=== PATIENT | female | born 2000 | race Caucasian/White ===

== ENCOUNTER 2021-04-22 07:47 | Emergency (ER) | payer MEDICAID, SELFPAY ==
[2021-04-22 07:49] VITALS: BP 132/93; PULSE 100; RESP 16; TEMP 36.7; O2SAT 98; BMI 40.7
--- NOTE | 2021-04-22 08:08 | CT_ITS ---
STUDY: CT ABDOMEN AND PELVIS WITHOUT CONTRAST REASON FOR EXAM: Female, 20 years old. Kidney Stone RADIATION DOSAGE (If Supplied By Facility): CTDIvol = ( 11.49 ) mGy, DLP = ( 634.35 ) mGycm TECHNIQUE: Transaxial images were obtained from the dome of the diaphragm to the symphysis pubis without oral contrast, and without intravenous contrast. Sagittal and coronal images were reconstructed. Individualized dose optimization techniques were used for this CT. COMPARISON: None. FINDINGS: The visualized lung bases are unremarkable. The visualized portions of the heart are within normal limits. Normal liver. Normal gallbladder and extrahepatic biliary system. Normal spleen. Normal pancreas. Normal bilateral adrenal glands. Normal right kidney. Tiny (1 to 2 mm) obstructing stone of the distal right ureter just proximal to the ureterovesical junction with mild ureteral dilatation and hydronephrosis. Normal visualized stomach. Normal small intestine. Normal colon. The appendix is visualized and appears normal. Normal abdominal aorta. Normal inferior vena cava. Normal retroperitoneum. Normal urinary bladder. Normal abdominal wall. Normal osseous structures. CT/Abdomen/Pelvis without Cont IMPRESSION: Tiny (1 to 2 mm) obstructing stone of the distal right ureter with mild ureteral dilatation and hydronephrosis. Electronically Signed: Nhan Damon MD at 9:26 EST ,
[2021-04-22] MEDS: Ondansetron 4 MG/2 ML Vial IV (08:16)
[2021-04-22] MEDS: Ketorolac 15 MG/ML Vial IV (08:17)
--- NOTE | 2021-04-22 08:18 | EDS_ITS ---
HPI HPI - Female History of Present Illness Chief Complaint: Abd Pain Narrative Narrative: 20-year-old female presenting with right flank pain. She states she has had it intermittently for a couple of days. She states it is sharp and intermittent. She has associated symptoms of nausea. Patient has a history of appendectomy previously. She states that she has family history of kidney stones and believes this is what it would feel like. She denies any urinary complaints. She is not concerned for because she has a Nexplanon. She has no vaginal complaints other than she has spotting on her period currently. PFSH PFSH Medical History (Updated 04/22/21 @ 10:[address] Abraham Rodriguez, ) Anxiety Depression TBI (traumatic brain injury) Home Medications hydrocodone-acetaminophen 1 tab PO Q6H PRN 3 Days #12 tab 04/22/21 [Rx Last Taken Unknown] ondansetron 4 mg PO Q8H PRN #14 tab 04/22/21 [Rx Last Taken Unknown] Allergy/AdvReac Type Severity Reaction Status Date / Time latex Allergy Rash Verified 04/22/21 07:50 Surgical History (Updated 04/22/21 @ 08:35 by Tosha Gann) Hx of appendectomy Social History Smoking Status: Current some day smoker tobacco type: e-cigarettes ROS ROS ED Constitutional Constitutional ED: Denies chills or subjective Eyes Eyes: Denies blurry vision or diplopia ENT ENT ED: Denies rhinorrhea or sore throat Cardiovascular Cardiovascular: Denies chest pain or palpitations Respiratory/Chest Respiratory/Chest: Denies cough, dyspnea or stridor Gastrointestinal Gastrointestinal: Reports abdominal pain and nausea; Denies constipation, diarrhea or vomiting Genitourinary Genitourinary ED: Denies dysuria or hematuria Musculoskeletal Musculoskeletal: Denies myalgias Integumentary Denies rash Neurologic Neurologic: Denies headache(s) or paresthesias Psychiatric Psychiatric: Denies anxiety or depression EXAM Physical Exam Const Vital Signs: 04/22/21 07:49 Temperature 98.0 F Temperature Source Temporal Pulse Rate 100 Respiratory Rate 16 Blood Pressure 132/93 H Blood Pressure Mean 106 Pulse Ox 98 Oxygen Delivery Method Room Air Positive well nourished General Appearance ED: NAD; Negative for pallor HEENT Reports moist mucous membranes Negative for trauma Eyes PERRL and EOMs intact bilaterally Chest Wall inspection of chest normal and palpation of chest normal Resp normal respiratory effort and clear to auscultation bilaterally Cardio regular rate and regular rhythm Back/Spine General Back: CVA tenderness right Lumbar Spine / Lower Back: Negative for lumbar spinal tenderness Neuro oriented x3 Sensorium / Orientation: alert Psych mental status grossly normal Skin General Skin Exam: Negative for jaundice or pallor MDM MDM MDM Narrative Medical decision making narrative: Patient presenting with CVA tenderness and nausea. She has family history of kidney stones. Patient medicated with Toradol and Zofran initially. Patient's urinalysis shows hematuria and some contamination however the patient is on her menstrual cycle currently. She is not having urinary symptoms and I do not believe she needs antibiotics. CBC and BMP are unremarkable. Serum test is negative. CT of the abdomen pelvis without contrast shows a 1 to 2 mm distal ureteral stone with very mild hydronephrosis and hydroureter. Patient currently comfortable. She will be given [place] and Zofran for home. She is given follow-up with urology. She is given return precautions. Impression: 1. Right ureteral stone 2. Hematuria 3. Hydronephrosis Lab Data Labs: Laboratory Results - last 24 hr 04/22/21 04/22/21 04/22/21 08:05 08:05 08:05 WBC 9.6 RBC 5.50 H Hgb 14.8 Hct 44.9 MCV 81.6 MCH 26.9 L MCHC 33.0 RDW Std Deviation 38.7 RDW Coeff of Rosalba 13.2 Plt Count 311 MPV 9.8 Immature Gran % (Auto) 0.500 Neut % (Auto) 56.4 Lymph % (Auto) 32.5 Granite % (Auto) 8.1 Eos % (Auto) 1.9 Baso % (Auto) 0.6 Absolute Neuts (auto) 5.4 Absolute Lymphs (auto) 3.11 Nucleated RBC % 0 Sodium 138 Potassium 3.8 Chloride 107 Carbon Dioxide 25.0 Anion Gap 6 BUN 13 Creatinine 0.80 Estim Creat Clear Calc 93.56 Est GFR (MDRD) Af Amer 119 Est GFR (MDRD) Non-Af 98 BUN/Creatinine Ratio 16.4 Glucose 98 Calcium 9.3 Serum , Qual NEGATIVE Urine Color Urine Clarity Urine pH Ur Specific Sylvester Urine Protein Urine Glucose (UA) Urine Ketones Urine Occult Blood Urine Nitrite Urine Bilirubin Urine Urobilinogen Ur Leukocyte Esterase Urine RBC Urine WBC Ur Squamous Epith Cells Urine Bacteria Urine Mucus 04/22/21 09:23 WBC RBC Hgb Hct MCV MCH MCHC RDW Std Deviation RDW Coeff of Rosalba Plt Count MPV Immature Gran % (Auto) Neut % (Auto) Lymph % (Auto) Granite % (Auto) Eos % (Auto) Baso % (Auto) Absolute Neuts (auto) Absolute Lymphs (auto) Nucleated RBC % Sodium Potassium Chloride Carbon Dioxide Anion Gap BUN Creatinine Estim Creat Clear Calc Est GFR (MDRD) Af Amer Est GFR (MDRD) Non-Af BUN/Creatinine Ratio Glucose Calcium Serum , Qual Urine Color Yellow Urine Clarity Sl. Cloudy Urine pH 5.0 Ur Specific Sylvester 1.025 Urine Protein 30 H Urine Glucose (UA) Normal Urine Ketones 5 H Urine Occult Blood 150 H Urine Nitrite Negative Urine Bilirubin 1 H Urine Urobilinogen 1 H Ur Leukocyte Esterase 25 H Urine RBC 10-25 SEEN Urine WBC 0-5 SEEN Ur Squamous Epith Cells 0-5 SEEN Urine Bacteria 2+ Urine Mucus 1+ Radiography Diagnostic Testing: Clinical Impression(s) from Imaging Studies Abdomen/Pelvis CT 04/22/21 08:08 IMPRESSION: Tiny (1 to 2 mm) obstructing stone of the distal right ureter with mild ureteral dilatation and hydronephrosis. Electronically Signed: Nhan Damon MD at 9:26 EST Reading Location ID and State: 4 [facility] Tel , Service support , Discharge Plan Triage Chief Complaint: Abd Pain ED Provider: Abraham Rodriguez Dx/Rx/DC Orders Instructions: ED Kidney Stone w/ Colic Prescriptions: New ondansetron 4 mg tablet,disintegrating 4 mg PO Q8H PRN (Reason: nausea and vomiting) Qty: 14 RF: 0 hydrocodone-acetaminophen 5-325 mg tablet 1 tab PO Q6H PRN (Reason: pain) 3 Days Qty: 12 RF: 0 Primary Care Provider: Mackenzie Al Referrals: Martha Aguilar MD [STAFF PHYSICIAN] - As soon as possible Mackenzie Al MD [Primary Care Provider] - Disposition Disposition: Home, Self Care
[2021-04-22 08:19] LABS: Absolute Lymphocyte Count 3.11 X10^3/uL (0.83-4.51); Absolute Neutrophil Count 5.4 X10^3/uL (2.0-7.7); Basophil# 0.06 X10^3/uL; Basophil% 0.6 % (0-1); Eosinophil# 0.18 X10^3/uL; Eosinophils% 1.9 % (0-5); Hematocrit 44.9 % (37-47); Hemoglobin 14.8 g/dL (12.0-15.0); Lymphocyte # 3.11 X10^3/ul (0.83-4.51); Lymphocyte % 32.5 % (19-41); Mean Corpuscular Hgb 26.9 pg (27.0-32.0); Mean Corpuscular Volume 81.6 fL (81-99); Mean Platelet Vol. 9.8 fl (6.2-12.0); Monocyte# 0.77 X10^3/uL; Monocyte% 8.1 % (0-10); NRBC Flagged by Analyzer 0 % (0-5); Neutrophil # 5.39 X10^3/uL (2.7-7.7); Neutrophil % 56.4 % (47-70); Platelet Count 311 K/mm3 (150-450); RBC Distribution Width CV 13.2 % (11.6-14.6); RBC Distribution Width SD 38.7 fl (35.1-43.9); White Blood Count 9.6 K/mm3 (4.4-11.0)
[2021-04-22 08:33] LABS: Internal QC Validated? YES +Cl - CLEAR BKGD; Pregnancy, Serum, hCG Quali. NEGATIVE Negative
[2021-04-22 08:37] LABS: Anion Gap 6 (5-15); BUN 13 mg/dL (7-18); BUN/Creat Ratio 16.4 RATIO (10-20); Calcium,Total 9.3 mg/dL (8.5-10.1); Chloride 107 mmol/L (98-107); EST Glomerular Filtration Rate 98 mL/min (>60); Est Glom Filt Rate - Afr Amer 119 mL/min (>60); Estimated Creatinine Clearance 93.56 ml/min; Glucose 98 mg/dL (74-106); Potassium 3.8 mmol/L (3.5-5.1); Sodium Level 138 mmol/L (136-145)
[2021-04-22 09:29] LABS: Color, Urine Yellow (Yellow); Glucose, Dipstick Normal (Normal); Ketone-Dipstick 5 mg/dl (Negative); Leukocyte Esterase-Dipstick 25 /ul (Negative); Nitrite-Dipstick Negative (Negative); Occult Blood-Urine 150 /ul (Negative); Protein-Dipstick 30 mg/dl (Negative); Specific Gravity, Urine 1.025 (1.002-1.030); Urine Clarity Sl. Cloudy (Clear); Urine Urobilinogen 1 mg/dl (Normal)
[2021-04-22 09:30] LABS: Urine Bilirubin Dipstick 1 mg/dL (Negative)
[2021-04-22 09:35] LABS: Bacteria 2+ /hpf (None Seen); Mucous, Urine 1+ /hpf (<or=2+); Squamous Epithelial Cells - UA 0-5 SEEN /hpf (5-10); White Blood Cells 0-5 SEEN /hpf (0-5)
[2021-04-22 09:36] LABS: Red Blood Cells-Urine 10-25 SEEN /hpf (0-5)
[2021-04-22] MEDS: HYDROcodone Bitartrate/Apap 5/325 Tablet PO (10:18)
[2021-04-22 10:26] VITALS: BP 124/75; PULSE 78; RESP 16; O2SAT 97
== END 2021-04-22 10:28 | disposition home or self-care (01) ==
PROVIDERS: Emergency Provider Student in an Organized Health Care Education/Training Program; Visit Provider Student in an Organized Health Care Education/Training Program
DX: N13.2 Hydronephrosis with renal and ureteral calculous obstruction (principal); R31.9 Hematuria, unspecified; F17.290 Nicotine dependence, other tobacco product, uncomplicated
CPT/HCPCS: 74176; 80048; 81001; 84703; 85025; 96374; 96375; 99285; J2405

== ENCOUNTER 2021-09-17 15:36 | Emergency (ER) | payer MEDICAID, SELFPAY ==
[2021-09-17 15:37] VITALS: BP 130/86; PULSE 91; RESP 16; TEMP 36.6; O2SAT 96; BMI 40.7
--- NOTE | 2021-09-17 15:56 | EX.ED.DYSGE1 ---
HPI History of Present Illness Chief Complaint: Other, Pain/Inj Narrative Narrative: Patient presents with right-sided jaw pain since this morning. She notes that she had a dental procedure performed and a filling in her right upper jaw yesterday. This morning when she awoke, she had increased pain with opening and closing her mouth when she clenches her teeth on the right side. She has sharp pain. 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 She called her primary care provider who was concerned about hypermobility of her right jaw. She denies any fevers or chills, no other symptoms. She presents because of the pain that she gets when she has movement of her mandible. [facility] Medical History Anxiety Depression TBI (traumatic brain injury) Home Medications hydrocodone-acetaminophen 5-325mg 5mg-325mg 1 tab PO Q6H PRN pain 3 days #12 tabs 04/22/21 [Rx Last Taken Unknown] ondansetron 4 mg disintegrating tablet 4 mg PO Q8H PRN nausea and vomiting #14 tabs 04/22/21 [Rx Last Taken Unknown] ibuprofen 800 mg tablet 800 mg PO Q8H PRN pain #30 tabs 09/17/21 [Rx Last Taken Unknown] Allergy/AdvReac Type Severity Reaction Status Date / Time latex Allergy Rash Verified 09/17/21 15:39 Surgical History Hx of appendectomy Social History Smoking Status: Current some day smoker tobacco type: e-cigarettes ROS ROS ED ROS Narrative Constitutional: No fever, no chills. HEENT: No sore throat. No neck pain. No loss of vision. No rhinorrhea. Right jaw pain with history of TMJ, right greater than left. Cardiovascular: No chest pain. No palpitations. No pedal edema. Respiratory: No cough, no shortness of breath. Abdominal: No abdominal pain. No nausea. No vomiting. Genitourinary: No dysuria. No hematuria. Musculoskeletal: No myalgias. No arthralgias. Neurologic: No headaches. No dizziness. No lightheadedness. Skin: No rash. No change in color. Psychiatric: No depression. No anxiety. EXAM Physical Exam Narrative Exam Narrative: Afebrile. Vital signs noted. HEENT: Normocephalic. Atraumatic. PERRL, EOMI. Neck soft and supple. No point tenderness or step off. She has mild tenderness to palpation in the right TMJ. There is clicking when she opens and closes her mouth that is palpated. There is no trismus or noted jaw instability. No evidence of dislocation of her jaw. She has good range of motion of her mandible and can open her mouth completely. Cardiovascular: Regular rate and rhythm. No murmurs, rubs, or gallops appreciated. Respiratory: No tachypnea. Lungs clear to auscultation bilaterally. Gastrointestinal: Abdomen soft, nontender, with normoactive bowel sounds. No rebound or guarding. Neurological: Awake. Alert. Nonfocal, nonlateralizing. Skin: No rash. Normal color. No pallor. Musculoskeletal: No pedal edema. Full range of motion extremities. Const Vital Signs: 09/17/21 15:37 Temperature 97.8 F Temperature Source Temporal Pulse Rate 91 Respiratory Rate 16 Blood Pressure 130/86 H Blood Pressure Mean 100 Pulse Ox 96 Oxygen Delivery Method Room Air MDM MDM MDM Narrative Medical decision making narrative: I do not feel imaging is indicated. I do feel that she may have a jaw sprain versus TMJ inflammation secondary to having a procedure done by the dentist where she had to open her mouth for longer periods of time. She was given a shot of Toradol here and a prescription written for ibuprofen. She will follow-up with her primary care physician who may refer her to an ENT/strategy manager as needed and obtain outpatient imaging. Return instructions to the emergency department were reviewed. Disposition is discharged home in stable condition. Discharge Plan Triage Chief Complaint: Other, Pain/Inj ED Provider: Alphonse Mclean Dx/Rx/DC Orders Clinical Impression: TMJ inflammation, Sprain of jaw, right side, initial encounter Instructions: TMD Pain Relief, ED TMJ Syndrome Prescriptions: New ibuprofen 800 mg tablet 800 mg PO Q8H PRN (Reason: pain) Qty: 30 0RF No Action ondansetron 4 mg tablet,disintegrating 4 mg PO Q8H PRN (Reason: nausea and vomiting) Qty: 14 0RF hydrocodone-acetaminophen 5-325 mg tablet 1 tab PO Q6H PRN (Reason: pain) 3 Days Qty: 12 0RF Primary Care Provider: Mackenzie Al Referrals: Mackenzie Al MD [Primary Care Provider] - 1 Week if not improving Disposition Disposition: Home, Self Care
[2021-09-17] MEDS: Ketorolac 60 MG/2 ML Vial IM (16:07)
== END 2021-09-17 16:27 | disposition home or self-care (01) ==
PROVIDERS: Emergency Provider Emergency Medicine; Visit Provider Emergency Medicine
DX: S03.41XA Sprain of jaw, right side, initial encounter (principal); M26.649 Arthritis of unspecified temporomandibular joint; F17.290 Nicotine dependence, other tobacco product, uncomplicated; X58.XXXA Exposure to other specified factors, initial encounter
CPT/HCPCS: 96372; 99282

== ENCOUNTER 2021-11-18 17:22 | Emergency (ER) | payer MEDICAID, SELFPAY ==
[2021-11-18 17:23] VITALS: BP 118/88; PULSE 88; RESP 15; TEMP 36.3; O2SAT 97; BMI 37.1
--- NOTE | 2021-11-18 17:38 | EX.ED.DYSGE1 ---
HPI History of Present Illness Chief Complaint: Dental Detail of Chief Complaint: Cyst on lower lip Informant: patient Onset/Context/Timing Onset: Days Context: Gradual Onset Current Severity: Mild Maximum Severity: Mild Narrative Narrative: Patient presents with a palpable cyst on her lower lip that she is noted over the past couple days. She does not remember any specific injury. She has no dental pain. [facility] Medical History Anxiety Asthma Depression TBI (traumatic brain injury) Home Medications ibuprofen 800 mg tablet 800 mg PO Q8H PRN pain #30 tabs 09/17/21 [Rx Last Taken Unknown] albuterol sulfate 90 mcg/actuation aerosol inhaler 2 puff inhalation Q6H PRN SOB 11/18/21 [History Last Taken Unknown] cetirizine 10 mg tablet (Zyrtec) 10 mg PO DAILY 11/18/21 [History Last Taken Unknown] escitalopram oxalate 20 mg tablet (Lexapro) 20 mg PO DAILY 11/18/21 [History Last Taken Unknown] etonogestrel 68 mg subdermal implant (Nexplanon) mg subdermal 11/18/21 [History Last Taken Unknown] fexofenadine 180 mg tablet (Edda Allergy) 180 mg PO DAILY 11/18/21 [History Last Taken Unknown] Allergy/AdvReac Type Severity Reaction Status Date / Time latex Allergy Rash Verified 09/17/21 15:39 pineapple Allergy Food Verified 11/18/21 17:23 Allergy Surgical History Hx of appendectomy Social History Smoking Status: Current some day smoker tobacco type: e-cigarettes ROS ROS ED Constitutional Constitutional ED: Denies chills or fever(s) Eyes Eyes: Denies change in vision or discharge from eye(s) ENT ENT ED: Reports other Details: Lower lip cyst ; Denies discharge from eye(s), rhinorrhea or sore throat Cardiovascular Cardiovascular: Denies chest pain or palpitations Respiratory/Chest Respiratory/Chest: Denies cough or dyspnea Gastrointestinal Gastrointestinal: Denies abdominal pain, diarrhea, nausea or vomiting Genitourinary Genitourinary ED: Denies difficulty urinating or dysuria Musculoskeletal Musculoskeletal: Denies back pain or extremity pain Integumentary Denies abscess Psychiatric Psychiatric: Denies anxiety or depression Allergic/Immunologic Allergic/Immunologic ED: Denies lip swelling or urticaria EXAM Physical Exam Const Vital Signs: 11/18/21 17:23 Temperature 97.3 F L Temperature Source Temporal Pulse Rate 88 Respiratory Rate 15 Blood Pressure 118/88 H Blood Pressure Mean 98 Pulse Ox 97 Oxygen Delivery Method Room Air Positive well nourished and well developed General Appearance ED: well developed HEENT Reports normocephalic and head/scalp atraumatic HEENT Narrative: Small palpable cyst in the right facial area just inferior to her lower lip. No fluctuance. No overlying skin change. Area is nontender. I do not believe this represents an abscess. Dental exam is normal. Eyes PERRL and EOMs intact bilaterally Neck supple Chest Wall inspection of chest normal and palpation of chest normal Resp normal respiratory effort and clear to auscultation bilaterally Cardio regular rate and regular rhythm GI normal to inspection, nondistended, normoactive bowel sounds Palpation: soft Extremity normal to inspection Neuro oriented x3 and no sensory deficits noted Sensorium / Orientation: alert Motor Exam: strength 5/5 throughout Psych mental status grossly normal Skin no rashes or lesions noted MDM MDM MDM Narrative Medical decision making narrative: Patient was advised to continue supportive care with anti-inflammatories. If area enlarges she may require surgical removal of the cyst if it bothers her. She will be given Dr. Isbell's information for follow-up should that arise. Discharge Plan Triage Chief Complaint: Dental ED Provider: Mackenzie Orozco Dx/Rx/DC Orders Clinical Impression: Cyst Instructions: ED [place] Prescriptions: No Action ibuprofen 800 mg tablet 800 mg PO Q8H PRN (Reason: pain) Qty: 30 0RF cetirizine [Zyrtec] 10 mg Tablet 10 mg PO DAILY fexofenadine [Edda Allergy] 180 mg Tablet 180 mg PO DAILY albuterol sulfate 90 mcg/actuation Hfa Aerosol Inhaler 2 puff INHALATION Q6H PRN (Reason: SOB) escitalopram oxalate [Lexapro] 20 mg Tablet 20 mg PO DAILY Nexplanon 68 mg Implant SUBDERMAL Primary Care Provider: Mackenzie Al Referrals: Mackenzie Al MD [Primary Care Provider] - Adan Isbell DDS [Med Staff - Active Staff] - As Needed Disposition Disposition: Home, Self Care
== END 2021-11-18 17:55 | disposition home or self-care (01) ==
PROVIDERS: Emergency Provider Emergency Medicine; Visit Provider Emergency Medicine
DX: K04.8 Radicular cyst (principal); F17.290 Nicotine dependence, other tobacco product, uncomplicated; Z79.899 Other long term (current) drug therapy
CPT/HCPCS: 99282

== ENCOUNTER 2022-03-22 19:32 | Emergency (ER) | payer MEDICAID, SELFPAY ==
[2022-03-22 19:33] VITALS: BP 115/83; PULSE 88; RESP 18; TEMP 35.9; O2SAT 100; BMI 35.2
--- NOTE | 2022-03-22 19:36 | RAD_ITS ---
EXAM: XR RIGHT HAND COMPLETE, 3 OR MORE VIEWS CLINICAL INDICATION: crush injury TECHNIQUE: Frontal, lateral and oblique views of the right hand. This report was created using resmio report generation technology. COMPARISON: None. FINDINGS: BONES/JOINTS: Unremarkable. No acute fracture. No subluxation. Normal alignment. Preservation of the joint space. No sclerotic or destructive changes observed. SOFT TISSUES: Unremarkable. No soft tissue swelling or gas. No radiopaque foreign body. RAD/Hand Min 3 Views IMPRESSION: Negative right hand x-rays. Electronically Signed: Jorge Alberto Pickett MD at 19:55 EST ,
--- NOTE | 2022-03-22 22:20 | EX.ED.UPPERE ---
HPI History of Present Illness Chief Complaint: Upper Extremity Injury Narrative Narrative: 21-year-old female presenting with pain in the right pinky. She states that she got a crush today at work at [employer]. She is a superficial abrasion and notes that she has bruising to the proximal nail bed. She reports her tetanus is up-to-date. [facility] Medical History Anxiety Asthma Depression TBI (traumatic brain injury) Home Medications ibuprofen 800 mg tablet 800 mg PO Q8H PRN pain #30 tabs 09/17/21 [Rx Last Taken Unknown] albuterol sulfate 90 mcg/actuation aerosol inhaler 2 puff inhalation Q6H PRN SOB 11/18/21 [History Last Taken Unknown] cetirizine 10 mg tablet (Zyrtec) 10 mg PO DAILY 11/18/21 [History Last Taken Unknown] escitalopram oxalate 20 mg tablet (Lexapro) 20 mg PO DAILY 11/18/21 [History Last Taken Unknown] etonogestrel 68 mg subdermal implant (Nexplanon) mg subdermal 11/18/21 [History Last Taken Unknown] fexofenadine 180 mg tablet (Edda Allergy) 180 mg PO DAILY 11/18/21 [History Last Taken Unknown] Allergy/AdvReac Type Severity Reaction Status Date / Time latex Allergy Rash Verified 03/22/22 19:33 pineapple Allergy Food Verified 03/22/22 19:33 Allergy Surgical History Hx of appendectomy Social History Smoking Status: Current some day smoker tobacco type: e-cigarettes EXAM Physical Exam Const Vital Signs: 03/22/22 19:33 Temperature 96.7 F L Temperature Source Temporal Pulse Rate 88 Respiratory Rate 18 Blood Pressure 115/83 H Blood Pressure Mean 93 Pulse Ox 100 Oxygen Delivery Method Room Air Positive well nourished HEENT Reports moist mucous membranes normocephalic and atraumatic Eyes PERRL and EOMs intact bilaterally Resp clear to auscultation bilaterally Auscultation: Negative for rales, rhonchi or wheezes Cardio regular rate and regular rhythm GI non-tender Extremity Extremity Narrative: Superficial abrasion to the left adjacent to the nailbed. There is no bruising over the proximal aspect of the nailbed. No obvious deformity. He Neuro oriented x3, CN's II-XII intact bilaterally, moves all extremities and no focal motor deficits Sensorium / Orientation: alert Motor Exam: strength 5/5 throughout and muscle tone normal throughout Psych mental status grossly normal MDM MDM MDM Narrative Medical decision making narrative: Patient given ibuprofen for pain. She believes her tetanus is up-to-date. I obtained x-rays of the left hand which on my interpretation there is no acute fracture or subluxation. Patient put in an AlumaFoam splint. Counseled use Tylenol and ibuprofen. I counseled her that she has a very small subungual hematoma. Impression: 1. Right hand abrasion 2. Right fifth digit subungual hematoma Lab Data Attestation: I reviewed the patient's lab results. Radiography Diagnostic Testing: Clinical Impression(s) from Imaging Studies Hand X-Ray 03/22/22 19:36 IMPRESSION: Negative right hand x-rays. Electronically Signed: Jorge Alberto Pickett MD at 19:55 EST , Discharge Plan Triage Chief Complaint: Upper Extremity Injury ED Provider: Abraham Rodriguez Dx/Rx/DC Orders Prescriptions: No Action ibuprofen 800 mg tablet 800 mg PO Q8H PRN (Reason: pain) Qty: 30 0RF cetirizine [Zyrtec] 10 mg Tablet 10 mg PO DAILY fexofenadine [Edda Allergy] 180 mg Tablet 180 mg PO DAILY albuterol sulfate 90 mcg/actuation Hfa Aerosol Inhaler 2 puff INHALATION Q6H PRN (Reason: SOB) escitalopram oxalate [Lexapro] 20 mg Tablet 20 mg PO DAILY Nexplanon 68 mg Implant SUBDERMAL Primary Care Provider: Mackenzie Al Referrals: Mackenzie Al MD [Primary Care Provider] -
[2022-03-22] MEDS: Ibuprofen 600 MG Tablet PO (22:24)
== END 2022-03-22 22:29 | disposition home or self-care (01) ==
PROVIDERS: Emergency Provider Student in an Organized Health Care Education/Training Program; Visit Provider Student in an Organized Health Care Education/Training Program
DX: S60.511A Abrasion of right hand, initial encounter (principal); S60.052A Contusion of left little finger without damage to nail, initial encounter; F17.290 Nicotine dependence, other tobacco product, uncomplicated; X58.XXXA Exposure to other specified factors, initial encounter
CPT/HCPCS: 73130; 99282

== ENCOUNTER 2022-06-18 12:12 | Emergency (ER) | payer MEDICAID, SELFPAY ==
[2022-06-18 12:13] VITALS: BP 151/95; PULSE 110; RESP 16; TEMP 36.6; O2SAT 100; BMI 35.0
--- NOTE | 2022-06-18 12:26 | ED.VIS.FEGU ---
HPI HPI - Female History of Present Illness Chief Complaint: Vag Bleeding Informant: patient Pain Pain: Positive for Pelvic Pain Onset: Yesterday Context: Gradual Onset Timing: Continuous Quality: Positive for Cramping Location: Suprapubic Worsened by: - (Nothing) Relieved by: - (Nothing) Bleeding Issue: Positive for Vaginal bleeding Onset: Yesterday Associated Symptoms Associated Symptoms: Negative for Dysuria, Frequency or Urgency Narrative Narrative: Patient presents with abnormal vaginal bleeding that began last night. Patient states it is heavier than usual. Patient states she is on Nexplanon and has light and irregular periods. Patient states she went through 3 ultra tampons today. Patient states this is heavier than normal. Patient admits to some pelvic cramping. Patient states this has been constant. Patient denies any fevers or chills. Patient states that a few weeks ago she had some nausea and vomiting in the mornings. Patient also admitted to some breast tenderness a few weeks ago. Patient did not take a home test. Patient is concerned that she is and having a miscarriage. PFSH PFSH Medical History Anxiety Asthma Depression TBI (traumatic brain injury) Home Medications ibuprofen 800 mg tablet 800 mg PO Q8H PRN pain #30 tabs 09/17/21 [Rx Last Taken Unknown] albuterol sulfate 90 mcg/actuation aerosol inhaler 2 puff inhalation Q6H PRN SOB 11/18/21 [History Last Taken Unknown] cetirizine 10 mg tablet (Zyrtec) 10 mg PO DAILY 11/18/21 [History Last Taken Unknown] escitalopram oxalate 20 mg tablet (Lexapro) 20 mg PO DAILY 11/18/21 [History Last Taken Unknown] etonogestrel 68 mg subdermal implant (Nexplanon) mg subdermal 11/18/21 [History Last Taken Unknown] fexofenadine 180 mg tablet (Edda Allergy) 180 mg PO DAILY 11/18/21 [History Last Taken Unknown] Allergy/AdvReac Type Severity Reaction Status Date / Time latex Allergy Rash Verified 03/22/22 19:33 pineapple Allergy Food Verified 03/22/22 19:33 Allergy Surgical History Hx of appendectomy Social History Smoking Status: Current some day smoker tobacco type: e-cigarettes ROS ROS ED Constitutional Constitutional ED: Denies chills or fever(s) Eyes Eyes: Denies blurry vision or change in vision ENT ENT ED: Denies rhinorrhea or sore throat Cardiovascular Cardiovascular: Denies chest pain or palpitations Respiratory/Chest Respiratory/Chest: Denies cough or dyspnea Gastrointestinal Gastrointestinal: Reports abdominal pain; Denies nausea or vomiting Genitourinary Genitourinary ED: Denies dysuria or hematuria Musculoskeletal Musculoskeletal: Reports back pain; Denies neck pain Integumentary Denies abscess or rash Neurologic Neurologic: Denies headache(s) or weakness Allergic/Immunologic Allergic/Immunologic ED: Denies mouth swelling or urticaria EXAM Physical Exam Const Vital Signs: 06/18/22 12:13 Temperature 97.8 F Temperature Source Temporal Pulse Rate 110 H Respiratory Rate 16 Blood Pressure 151/95 H Blood Pressure Mean 113 Pulse Ox 100 Oxygen Delivery Method Room Air Positive well nourished and well developed General Appearance ED: well developed HEENT Reports moist mucous membranes Neck supple and no JVD Resp normal respiratory effort and clear to auscultation bilaterally Cardio regular rate, regular rhythm and no murmurs GI normal to inspection, nondistended, normoactive bowel sounds Palpation: soft and tender suprapubic; Negative for guarding Extremity normal to inspection General Extremety ED: Negative for edema or tenderness General Extremity: Negative for edema Neuro oriented x3, CN's II-XII intact bilaterally and no sensory deficits noted Sensorium / Orientation: alert Motor Exam: strength 5/5 throughout Psych mental status grossly normal Skin no rashes or lesions noted MDM MDM MDM Narrative Medical decision making narrative: Differential diagnosis includes threatened miscarriage, ectopic , urinary tract infection, dysmenorrhea, uterine fibroid, ovarian cyst, and ovarian torsion. CBC will be obtained to assess for anemia and leukocytosis. Basic metabolic profile will be obtained to assess for electrolyte abnormality and renal function. Serum quantitative hCG will be obtained to assess for status. Urinalysis will be obtained to assess for urinary tract infection. Type and Rh will be obtained to assess for blood type. Lab Data Attestation: I reviewed the patient's lab results. Lab results narrative: CBC was reviewed and was within normal limits. Basic metabolic profile was reviewed and was within normal limits. Quantitative hCG was reviewed and was less than 1. Type and Rh was reviewed and was a positive. Urinalysis was reviewed. There is no evidence of urinary tract infection or hematuria. Labs: Laboratory Results - last 24 hr 06/18/22 06/18/22 06/18/22 12:47 12:47 12:47 WBC 7.9 RBC 4.52 Hgb 12.7 Hct 39.1 MCV 86.5 MCH 28.1 MCHC 32.5 RDW Std Deviation 39.8 RDW Coeff of Rosalba 12.7 Plt Count 247 MPV 9.8 Immature Gran % (Auto) 0.400 Neut % (Auto) 62.5 Lymph % (Auto) 27.8 Howell % (Auto) 7.6 Eos % (Auto) 0.8 Baso % (Auto) 0.9 Absolute Neuts (auto) 4.9 Absolute Lymphs (auto) 2.19 Nucleated RBC % 0 Sodium 140 Potassium 3.9 Chloride 114 H Carbon Dioxide 24.0 Anion Gap 2 L BUN 9 Creatinine 0.69 Estim Creat Clear Calc 111.37 Est GFR (MDRD) Af Amer 139 Est GFR (MDRD) Non-Af 115 BUN/Creatinine Ratio 13.1 Glucose 91 Calcium 8.7 HCG, Quant < 1 Urine Color Urine Clarity Urine pH Ur Specific Mcdonald Urine Protein Urine Glucose (UA) Urine Ketones Urine Occult Blood Urine Nitrite Urine Bilirubin Urine Urobilinogen Ur Leukocyte Esterase Urine RBC Urine WBC Ur Squamous Epith Cells Urine Bacteria Urine Mucus Blood Type 06/18/22 06/18/22 12:47 12:57 WBC RBC Hgb Hct MCV MCH MCHC RDW Std Deviation RDW Coeff of Rosalba Plt Count MPV Immature Gran % (Auto) Neut % (Auto) Lymph % (Auto) Howell % (Auto) Eos % (Auto) Baso % (Auto) Absolute Neuts (auto) Absolute Lymphs (auto) Nucleated RBC % Sodium Potassium Chloride Carbon Dioxide Anion Gap BUN Creatinine Estim Creat Clear Calc Est GFR (MDRD) Af Amer Est GFR (MDRD) Non-Af BUN/Creatinine Ratio Glucose Calcium HCG, Quant Urine Color Yellow Urine Clarity Sl. Cloudy Urine pH 5.0 Ur Specific Mcdonald 1.025 Urine Protein 30 H Urine Glucose (UA) Normal Urine Ketones 5 H Urine Occult Blood 150 H Urine Nitrite Negative Urine Bilirubin Negative Urine Urobilinogen 1 H Ur Leukocyte Esterase 25 H Urine RBC 0 SEEN Urine WBC 0-5 SEEN Ur Squamous Epith Cells 0-5 SEEN Urine Bacteria 0 SEEN Urine Mucus 2+ Blood Type A POSITIVE Treatment and Re-Evaluation Narrative: Patient was advised of her findings. Patient is feeling better on reevaluation. Patient was instructed to follow-up with her primary care physician and [employer] in 5 to 7 days. Patient understood and was agreeable with the plan. All questions were answered. Discharge Plan Triage Chief Complaint: Vag Bleeding ED Provider: Gold López Dx/Rx/DC Orders Clinical Impression: Dysfunctional uterine bleeding, Obesity (BMI 30-39.9) Instructions: ED Dysfunctional Uterine Bleeding Prescriptions: No Action ibuprofen 800 mg tablet 800 mg PO Q8H PRN (Reason: pain) Qty: 30 0RF cetirizine [Zyrtec] 10 mg Tablet 10 mg PO DAILY fexofenadine [Edda Allergy] 180 mg Tablet 180 mg PO DAILY albuterol sulfate 90 mcg/actuation Hfa Aerosol Inhaler 2 puff INHALATION Q6H PRN (Reason: SOB) escitalopram oxalate [Lexapro] 20 mg Tablet 20 mg PO DAILY Nexplanon 68 mg Implant SUBDERMAL Primary Care Provider: Mackenzie Al Referrals: Mackenzie Al MD [Primary Care Provider] - 3-5 Days Disposition Disposition: Home, Self Care
[2022-06-18 13:00] LABS: Absolute Lymphocyte Count 2.19 X10^3/uL (0.83-4.51); Absolute Neutrophil Count 4.9 X10^3/uL (2.0-7.7); Basophil# 0.07 X10^3/uL; Basophil% 0.9 % (0-1); Eosinophil# 0.06 X10^3/uL; Eosinophils% 0.8 % (0-5); Hematocrit 39.1 % (37-47); Hemoglobin 12.7 g/dL (12.0-15.0); Lymphocyte # 2.19 X10^3/ul (0.83-4.51); Lymphocyte % 27.8 % (19-41); Mean Corp Hgb Conc 32.5 g/dL (32-36); Mean Corpuscular Hgb 28.1 pg (27.0-32.0); Mean Corpuscular Volume 86.5 fL (81-99); Mean Platelet Vol. 9.8 fl (6.2-12.0); Monocyte% 7.6 % (0-10); NRBC Flagged by Analyzer 0 % (0-5); Neutrophil # 4.92 X10^3/uL (2.7-7.7); Neutrophil % 62.5 % (47-70); Platelet Count 247 K/mm3 (150-450); RBC Distribution Width CV 12.7 % (11.6-14.6); RBC Distribution Width SD 39.8 fl (35.1-43.9); Red Blood Count 4.52 M/mm3 (4.2-5.4); White Blood Count 7.9 K/mm3 (4.4-11.0)
[2022-06-18 13:01] LABS: Bacteria 0 SEEN /hpf (None Seen); Red Blood Cells-Urine 0 SEEN /hpf (0-5)
[2022-06-18 13:03] LABS: Color, Urine Yellow (Yellow); Glucose, Dipstick Normal (Normal); Ketone-Dipstick 5 mg/dl (Negative); Leukocyte Esterase-Dipstick 25 /ul (Negative); Nitrite-Dipstick Negative (Negative); Occult Blood-Urine 150 /ul (Negative); Protein-Dipstick 30 mg/dl (Negative); Specific Gravity, Urine 1.025 (1.002-1.030); Urine Bilirubin Dipstick Negative (Negative); Urine Clarity Sl. Cloudy (Clear); Urine Urobilinogen 1 mg/dl (Normal)
[2022-06-18 13:10] LABS: Anion Gap 2 (5-15); BUN 9 mg/dL (7-18); BUN/Creat Ratio 13.1 RATIO (10-20); Calcium,Total 8.7 mg/dL (8.5-10.1); Chloride 114 mmol/L (98-107); Creatinine, Serum 0.69 mg/dL (0.55-1.02); EST Glomerular Filtration Rate 115 mL/min (>60); Est Glom Filt Rate - Afr Amer 139 mL/min (>60); Estimated Creatinine Clearance 111.37 ml/min; Glucose 91 mg/dL (74-106); Potassium 3.9 mmol/L (3.5-5.1); Sodium Level 140 mmol/L (136-145)
[2022-06-18 13:14] LABS: hCG Titer Quant., Serum < 1 mIU/mL (1-3)
[2022-06-18 14:10] LABS: Mucous, Urine 2+ /hpf (<or=2+); Squamous Epithelial Cells - UA 0-5 SEEN /hpf (5-10); White Blood Cells 0-5 SEEN /hpf (0-5)
[2022-06-18 14:12] VITALS: RESP 16
== END 2022-06-18 14:30 | disposition home or self-care (01) ==
PROVIDERS: Emergency Provider Emergency Medicine; Visit Provider Emergency Medicine
DX: N93.8 Other specified abnormal uterine and vaginal bleeding (principal); E66.9 Obesity, unspecified; F17.290 Nicotine dependence, other tobacco product, uncomplicated
CPT/HCPCS: 80048; 81001; 84702; 85025; 86900; 86901; 99283; A4216